=== PATIENT | male | born 1970 | race Caucasian/White ===

== ENCOUNTER 2019-05-04 09:00 | Outpatient (RCR) | payer MEDICAID, SELFPAY | END 2019-05-04 09:05 | disposition home or self-care (01) | LOC: PT 09:00 | PROVIDERS: PCP Emergency Medicine | DX: M19.072 Primary osteoarthritis, left ankle and foot (principal) | CPT/HCPCS: 97010; 97014; 97016; 97110; 97140; 97163; 97760; G0283 ==

== ENCOUNTER 2020-05-23 12:56 | Emergency (ER) | payer MEDICAID, SELFPAY ==
[2020-05-23 14:31] VITALS: BP 160/103; PULSE 91; RESP 16; TEMP 37.4; O2SAT 93; BMI 39.0
--- NOTE | 2020-05-23 14:37 | HMH.EDUTC ---
[facility] [place] Clinical Impression: Strep throat Disposition: Home, Self-Care Condition on Discharge: Good Instructions: Strep Throat (Alternative Therapy), Strep Throat, DI for Strep Throat Additional Instructions: *Monitor Temp, Over the counter Motrin or Tylenol as directed/as needed Tylenol every 4 hours and Motrin every 6 hours (as long as your family doctor has told you that you can take it) for fever or pain. and straight to ER if unable to lower temp less than 101.0 after medication given *Warm salt water gargles may help to soothe the throat *Throat Lozenges *Warm fluids like tea with honey may help to soothe the throat *Sleep elevated *Humidifier/Vaporizer *Strep throat *If you did not take Penicillin shot or was unable to, start taking antibiotic immediately and make sure that you take it for the FULL length of time although you should start to feel better in 24-48 hours *change toothbrush and toothpaste 24-48 hours after starting to take antibiotics so you do not reinfect yourself Monitor Temp. Tylenol and/or Ibuprofen as needed. ER if fever is no less than 101 despite alternating Tylenol and Ibuprofen * Encourage fluids, water, Gatorade, powerade, pedialyte if infant/toddler/or child *Cold fluids, popsicles and ice cream may feel good on his throat Follow up IMMEDIATELY for new or worsening symptoms or no Noticeable improvement over the next 48-72 hours. 911 for difficulty breathing or swallowing Referrals: Eric Wood MD [Primary Care Provider] - As needed Forms: Work/School Release Time of Disposition: 14:43 Medical Decision Making - Truong Inquiry Pt receiving controlled substance: No Truong was queried for this patient: No Vital Signs: 05/23/20 14:31 Temperature 99.4 F Temperature Source Oral Pulse Rate [Right] 91 H Respiratory Rate 16 Blood Pressure [Right Arm] 160/103 H Blood Pressure Mean [Right Arm] 122 Blood Pressure Source [Right Arm] Automatic Cuff Blood Pressure Position [Right Arm] Sitting 02 Sat by Pulse Oximetry 93 L Oxygen Delivery Method Room Air - Lab Data Lab results reviewed: Yes: I reviewed the patient's lab results. Orders (Tests/Meds): ED MEDICATIONS Discontinued Medications Generic Name Dose Route Start Last Admin Trade Name Freq PRN Reason Stop Dose Admin Penicillin G Benzathine 1,200,000 unit 05/23/20 14:40 05/23/20 14:58 Penicillin G Benzathine 1,200,000 Units/2ml Syringe IM 05/23/20 14:41 1,200,000 unit ONCE ONE Administration Protocol [facility] [place] HPI - General Stated complaint: sore throat Time Seen by Provider: 05/23/20 14:37 Mode of Arrival: Ambulatory Source of Information: Patient Limitations: No Limitations Description of Symptoms (Recalled from Triage Doc. by RN): SORE THROAT FOR TWO WEEKS. PT TOOK CLINDO TID WITH NO RELIEF. HEENT Symptoms (Recalled from RN notes): Yes (SORE THROAT) Resp Symptoms (Recalled from RN notes): No Skin Symptoms (Recalled from RN notes): No MS Symptoms (Recalled from RN notes): No Functional Status (Recalled from RN notes): NA - History of Present Illness Provider Complaint: Patient states that he has been having sore throat and pain with eating on and off for a couple of weeks and pain with swallowing for several days that has got worse State that he had some old medication at home and took it but no relief - Related Data Home Medications Medication Instructions Recorded Confirmed naproxen 500 mg tablet 500 mg PO DAILY PRN tab 04/27/19 04/27/19 Previous Rx's Medication Instructions Recorded hydroxyzine pamoate 25 mg capsule 25 mg PO TID PRN #90 cap 04/27/19 amlodipine 5 mg tablet See Rx Instructions .ROUTE 11/19/19 .COMPLEX #90 tab Allergies Allergy/AdvReac Type Severity Reaction Status Date / Time No Known Allergies Allergy Verified 04/27/19 09:45 - Worker's Comp Is this a Worker's Comp case?: No [facility] History - Hepatitis A Screen Drug use history?: No
[2020-05-23 15:14] VITALS: BP 155/100; PULSE 89; RESP 16; TEMP 37.5
[2020-05-23 15:34] LABS: UTC Strep Screen (Rapid) Positive (Negative)
== END 2020-05-23 15:10 | disposition home or self-care (01) ==
PROVIDERS: Emergency Provider Nurse Practitioner; PCP Emergency Medicine
DX: J02.0 Streptococcal pharyngitis (principal); I10 Essential (primary) hypertension; Z79.899 Other long term (current) drug therapy
CPT/HCPCS: 87880; 99202; G0463; J0561

== ENCOUNTER 2020-05-25 11:03 | Emergency (ER) | payer MEDICAID, SELFPAY ==
[2020-05-25 11:10] VITALS: BP 151/94; PULSE 91; RESP 18; TEMP 36.8; O2SAT 95; BMI 39.0; BMI 39.2
--- NOTE | 2020-05-25 11:38 | HMH.EDUTC ---
[facility] [place] Disposition Clinical Impression: Strep throat Disposition: Home, Self-Care Condition on Discharge: Good Instructions: Strep Throat (Alternative Therapy), Strep Throat, DI for Strep Throat Additional Instructions: GO straight to Dr Kelly office after leaving the [facility] Return if needed Further instructions per Dr Becerril Straight to ER if any life threatening symptoms Referrals: Eric Wood MD [Primary Care Provider] - As needed Shola Becerril MD [Staff Physician] - 05/25/20 11:50 am (Go straight to Dr Kelly office upon leaving the [facility]) Time of Disposition: 11:51 Medical Decision Making - Truong Inquiry Pt receiving controlled substance: No Truong was queried for this patient: No Vital Signs: 05/25/20 11:10 05/25/20 11:53 Temperature 98.2 F 98.2 F Temperature Source Oral Pulse Rate 18 L Pulse Rate [Left Radial] 91 H Respiratory Rate 18 18 Blood Pressure 151/94 H Blood Pressure [Left Arm] 151/94 H Blood Pressure Mean [Left Arm] 113 Blood Pressure Source [Left Arm] Automatic Cuff Blood Pressure Position [Left Arm] Sitting 02 Sat by Pulse Oximetry 95 Oxygen Delivery Method Room Air - Lab Data Lab results reviewed: Yes: I reviewed the patient's lab results. Lab Results 05/25/20 11:15: Strep Scn Rapid [facility] Positive A 05/25/20 11:20: Monoscreen Negative - Physician Consults Physician Consulted: ana Time: 11:48 Reason -: ENT Eval/Care Comment/Response: Spoke with staff at Dr Becerril and they advised to not treat in [facility] send him to the clinic for further evaluation and examination and they would treat in the office and prescribe needed medications [facility] [place] HPI - General Stated complaint: sore throat Time Seen by Provider: 05/25/20 11:38 Mode of Arrival: Ambulatory Source of Information: Patient Limitations: No Limitations Description of Symptoms (Recalled from Triage Doc. by RN): PATIENT C/O SORE THROAT X 2 WEEKS. WAS SEEN 2 DAYS AGO IN [facility] FOR STREP AND WAS GIVEN PENICILLIN IM BUT STATES HE IS NO BETTER HEENT Symptoms (Recalled from RN notes): Yes Resp Symptoms (Recalled from RN notes): No Skin Symptoms (Recalled from RN notes): No MS Symptoms (Recalled from RN notes): No Functional Status (Recalled from RN notes): WNL - History of Present Illness Provider Complaint: Patient states that he has been having sore throat and pain with swallowing for about 2 weeks States that he had some left over Clindamycin at home and took about 3 days worth State that he didnt get any relief and then came in and got a PCN injection States that he felt like it got a little better then now is worse and having more swelling in his right tonsil area and pain with swallowing so he come back in - Related Data Home Medications Medication Instructions Recorded Confirmed Amlodipine Besylate [Norvasc 5mg 5 mg PO DAILY 05/25/20 05/25/20 tablet] Previous Rx's Medication Instructions Recorded amoxicillin 500 mg capsule 500 mg PO TID 10 Days #30 cap 05/25/20 methylprednisolone 4 mg tablets in 4 mg PO PER PKG DIR #21 tab 05/25/20 a dose pack Allergies Allergy/AdvReac Type Severity Reaction Status Date / Time No Known Allergies Allergy Verified 05/25/20 11:48 - Worker's Comp Is this a Worker's Comp case?: No [facility] History - Hepatitis A Screen Drug use history?: No High risk sexual behaviors?: No History of sexually transmitted infection?: No Currently employed?: No Childcare worker?: No Do you have indoor plumbing?: Yes Do you have electricity?: Yes Attestation statement:: This patient has been screened for Hepatitis A risk factors. I have reviewed the patient's past medical history: Yes Medical History: Reports:: Hypertension Denies:: Diabetes Mellitus Type 1, Diabetes Mellitus Type 2 Other Surgeries: Yes: Other Amputation: No Fractures: Yes (MULTIPLE) Comment: back, bone fusion, left foot x2, right arm - Social History Smoking Status: Unknown if ever smoked
[2020-05-25 11:40] LABS: Monoscreen (Rapid) Negative (Negative)
[2020-05-25 11:53] VITALS: BP 151/94; PULSE 18; RESP 18; TEMP 36.8; O2SAT 95
[2020-05-25 12:10] LABS: UTC Strep Screen (Rapid) Positive (Negative)
== END 2020-05-25 11:55 | disposition home or self-care (01) ==
LOC: ER 11:10 → UTC 11:10
PROVIDERS: Emergency Provider Nurse Practitioner; PCP Emergency Medicine
DX: J02.0 Streptococcal pharyngitis (principal); I10 Essential (primary) hypertension; Z79.899 Other long term (current) drug therapy
CPT/HCPCS: 86318; 87880; 99202; G0463

== ENCOUNTER 2024-09-30 09:54 | Day surgery (SDC) | payer MEDICAID, SELFPAY ==
[2024-09-30 10:11] VITALS: BMI 41.1
[2024-09-30 10:17] VITALS: BP 167/102; PULSE 70; RESP 18; TEMP 36.2; O2SAT 95
[2024-09-30] MEDS: LIDOCAINE 1% 20ML MDV 20 ML (10:35)
[2024-09-30 10:50] VITALS: BP 167/92; PULSE 67; RESP 20; TEMP 36.8; O2SAT 94
--- NOTE | 2024-09-30 10:52 | EXP.OP.NOTE ---
Date of procedure: 09/30/24 Pre-op Diagnosis:: Skin neoplasm of uncertain behavior -back (9 mm) Post-op Diagnosis:: Same Procedure performed:: Excision of 9 mm skin lesion from back Surgeon:: J Luis Salazar MD Anesthesia: local Estimated blood loss (mL): 5 Operative findings:: Lesion excised in toto Operative note:: After informed consent was obtained the patient was taken to the procedure room and maintained in a seated position. His mid back was prepped and draped in a sterile fashion. After infiltration with local anesthetic an elliptical incision was made around the lesion. Dissection was taken into the deep subcutaneous tissue. The lesion was excised in toto and passed off for pathologic evaluation. Thermal cautery was utilized to achieve hemostasis. Skin was reapproximated with 4-0 nylon in an interrupted mattress fashion. Dressings were applied and the patient was discharged home in stable condition. Condition: stable Disposition: no change Specimens:: Skin lesion back Complications:: No immediate
== END 2024-09-30 10:58 | disposition home or self-care (01) ==
PROVIDERS: Visit Provider Surgery
PROC: (CPT 11401; principal; 2024-09-30 11:00)
DX: L57.0 Actinic keratosis (principal); L82.0 Inflamed seborrheic keratosis; E66.3 Overweight; Z79.899 Other long term (current) drug therapy; Z79.52 Long term (current) use of systemic steroids; Z87.891 Personal history of nicotine dependence; Z68.41 Body mass index [BMI] 40.0-44.9, adult
CPT/HCPCS: 11401; 12031; J2003